=== PATIENT | female | born 1955 | race Asian ===

== ENCOUNTER 2018-04-19 20:40 | Emergency (ER) | payer OTHER ==
[2018-04-19 21:05] VITALS: BP 163/82; PULSE 94; TEMP 98; BMI 22.2
[2018-04-19] MEDS ORDERED: DIPHTH,PERTUSS(ACELL),TET 0.5 ML DISP.SYRIN IM ONE (21:05)
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
[2018-04-20] MEDS ORDERED: AMOX TR/POT CLAV 875MG/125MG TABLETS (FP) PO ONE (01:19)
[2018-04-20] MEDS ORDERED: AMOX TR/POT CLAV 875MG/125MG TABLETS (FP) ONE (01:20)
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
== END 2018-04-20 01:23 | disposition home or self-care (01) ==
LOC: JER 20:40
PROC: 3E0234Z Introduction of Serum, Toxoid and Vaccine into Muscle, Percutaneous Approach (ICD-10-PCS; principal; 2018-04-19)
DX: S50.372A Other superficial bite of left elbow, initial encounter (principal); W50.3XXA Accidental bite by another person, initial encounter; Y93.F9 Activity, other caregiving; Y92.128 Other place in nursing home as the place of occurrence of the external cause; Y99.0 Civilian activity done for income or pay; E11.9 Type 2 diabetes mellitus without complications; Z79.84 Long term (current) use of oral hypoglycemic drugs
CPT/HCPCS: 90715; 99282-25

== ENCOUNTER 2021-04-09 04:56 | Emergency (ER) | payer OTHER ==
[2021-04-09 06:02] VITALS: BMI 25.3
[2021-04-09 06:06] LABS: PH,URINE 6.5 (5.0-8.0); URINE APPEARANCE CLEAR; URINE BILIRUBIN NEGATIVE (NEGATIVE); URINE COLOR YELLOW; URINE GLUCOSE (UA) 3+ (NEGATIVE); URINE KETONE 1+ (NEGATIVE); URINE LEUK ESTERASE NEGATIVE (NEGATIVE); URINE NITRITE NEGATIVE (NEGATIVE); URINE PROTEIN NEGATIVE (NEGATIVE); URINE UROBILINOGEN 0.2 mg/dL (0.2-1.0)
[2021-04-09 06:50] VITALS: BP 131/75; PULSE 97; TEMP 98.6
== END 2021-04-09 06:52 | disposition home or self-care (01) ==
LOC: JER 04:56
DX: R33.9 Retention of urine, unspecified (principal)
CPT/HCPCS: 81003; 87086; 99283-25

== ENCOUNTER 2021-05-25 04:24 | Day surgery (SDC) | payer OTHER ==
[2021-05-21 12:47] VITALS: BMI 27.6
[2021-05-25] MEDS ORDERED: PROPOFOL 20 ML ONE ×2 (12:51)
[2021-05-25] MEDS ORDERED: MIDAZOLAM HCL 2 MG/2 ML SINGLE DOSE VIAL ONE (12:51)
[2021-05-25] MEDS ORDERED: SUCCINYLCHOLINE CHLORIDE 200 MG/10 ML SYRINGE ONE (12:53)
[2021-05-25] MEDS ORDERED: ACETAMINOPHEN 1000 MG/100 ML VIAL IVPB ONE (13:40)
[2021-05-25] MEDS ORDERED: DEXTROSE 5%-0.45% SALINE 1,000 ML IV SCH (13:45)
[2021-05-25] MEDS ORDERED: ceFAZolin SODIUM 1 GM VIAL IVPB ONE (13:50)
[2021-05-25] MEDS ORDERED: ACETAMINOPHEN INJECTION 100 ML IVPB ONE (15:34)
[2021-05-25] MEDS ORDERED: ONDANSETRON 4 MG/2 ML VIAL IVPUSH PRN (16:04)
[2021-05-25] MEDS ORDERED: oxyCODONE HCL 5 MG TABLET PO PRN (16:04)
[2021-05-25] MEDS ORDERED: LACTATED RINGERS SOLUTION 1,000 ML IV SCH (16:15)
[2021-05-25 17:58] VITALS: BP 133/65; PULSE 89; TEMP 98
== END 2021-05-25 18:00 | disposition home or self-care (01) ==
LOC: JASU-SURG 04:24
PROVIDERS: ATTEND Urology
PROC: 0TSD4ZZ Reposition Urethra, Percutaneous Endoscopic Approach (ICD-10-PCS; 2021-05-25)
PROC: 0JQC0ZZ Repair Pelvic Region Subcutaneous Tissue and Fascia, Open Approach (ICD-10-PCS; principal; 2021-05-25 13:30)
PROC: 0TSD4ZZ Reposition Urethra, Percutaneous Endoscopic Approach (ICD-10-PCS; 2021-05-25 13:30)
DX: N81.11 Cystocele, midline (principal); R33.8 Other retention of urine; N36.41 Hypermobility of urethra; E11.9 Type 2 diabetes mellitus without complications; Z79.84 Long term (current) use of oral hypoglycemic drugs
CPT/HCPCS: 57240; 57288; C1771; 82962; 88305-TC; 94760; J0131

== ENCOUNTER 2021-11-07 18:30 | Emergency (ER) | payer OTHER ==
[2021-11-07 18:39] VITALS: BP 168/84; PULSE 84; TEMP 98.1; BMI 24.8
[2021-11-07] MEDS ORDERED: DIPHTH,PERTUSS(ACELL),TET 0.5 ML DISP.SYRIN IM ONE ×2 (19:32→20:07)
== END 2021-11-07 20:35 | disposition home or self-care (01) ==
LOC: JERFT 18:30
PROC: 0HQ0XZZ Repair Scalp Skin, External Approach (ICD-10-PCS; principal; 2021-11-07)
PROC: 3E0234Z Introduction of Serum, Toxoid and Vaccine into Muscle, Percutaneous Approach (ICD-10-PCS; 2021-11-07)
DX: S01.01XA Laceration without foreign body of scalp, initial encounter (principal); Y00.XXXA Assault by blunt object, initial encounter
CPT/HCPCS: 90715; 99283-25

== ENCOUNTER 2024-07-13 17:57 | Observation (INO) | payer OTHER ==
[2024-07-13 18:13] VITALS: BMI 20.6
[2024-07-13 19:36] LABS: BASO % 0.3 % (0-2.0)
[2024-07-13] MEDS: morphine CARPU-JECT 4 MG/1 ML DISP.SYRIN IVPUSH ONE (19:38)
[2024-07-13] MEDS ORDERED: KETOROLAC TROMETHAMINE 15 MG/ML VIAL ONE (19:40)
[2024-07-13] MEDS: KETOROLAC TROMETHAMINE 15 MG/ML VIAL IVPUSH ONE (19:43)
[2024-07-13 19:44] LABS: INR 0.98 (0.83-1.09); PROTHROMBIN TIME (PATIENT) 11.3 SEC (9.7-13.0)
[2024-07-13 19:45] LABS: EOS % 0.6 % (0-4.5); HEMATOCRIT 40.2 % (32.4-45.2); HEMOGLOBIN 13.7 GM/dL (10.7-15.3); LYMPH % 10.6 % (8-40); MCH 30.1 pg (25.7-33.7); MCHC 34.1 g/dl (32.0-36.0); MEAN CELL VOLUME 88.1 fl (80-96); MEAN PLT VOLUME 7.7 fl (7.5-11.1); MONO % 4.9 % (3.8-10.2); NEUT % 83.6 % (42.8-82.8); PLATELET COUNT 240 10^3/uL (134-434); RBC 4.56 M/mm3 (3.60-5.2); RDW 13.6 % (11.6-15.6); WHITE BLOOD COUNT 10.5 K/mm3 (4.0-10.0)
[2024-07-13 19:46] LABS: ACTIVATED PTT 34.2 SECONDS (25.2-36.5)
[2024-07-13 20:04] LABS: POTASSIUM 4.1 mmol/L (3.5-5.1)
[2024-07-13 20:06] LABS: BLOOD UREA NITROGEN 12.1 mg/dL (7-18); CALCIUM 9.7 mg/dL (8.5-10.1)
[2024-07-13 20:07] LABS: ALBUMIN 4.4 g/dl (3.4-5.0)
[2024-07-13 20:10] LABS: CREATININE 0.7 mg/dL (0.55-1.3)
[2024-07-13 20:11] LABS: BILIRUBIN,TOTAL 0.4 mg/dL (0.2-1); TOT PROT 7.9 g/dl (6.4-8.2)
[2024-07-13] MEDS ORDERED: traMADol HCL 50 MG TABLET ONE (23:12)
[2024-07-13] MEDS: traMADol HCL 50 MG TABLET PO ONE (23:16)
[2024-07-14] MEDS ORDERED: MORPHINE SULFATE 2 MG/ML SYRINGE IVPUSH PRN (01:01)
[2024-07-14] MEDS: ACETAMINOPHEN 1000 MG/100 ML BAG IVPB PRN (06:51)
[2024-07-14] MEDS: INSULIN ASPART SLIDING SCALE (NOVOLOG) 1 VIAL SQ SCH (07:18)
[2024-07-14 09:34] LABS: BASO % 0.3 % (0-2.0); EOS % 0.5 % (0-4.5); HEMATOCRIT 37.2 % (32.4-45.2); HEMOGLOBIN 12.7 GM/dL (10.7-15.3); LYMPH % 20.1 % (8-40); MCH 30.3 pg (25.7-33.7); MCHC 34.2 g/dl (32.0-36.0); MEAN CELL VOLUME 88.5 fl (80-96); MONO % 7.2 % (3.8-10.2); NEUT % 71.9 % (42.8-82.8); PLATELET COUNT 228 10^3/uL (134-434); RBC 4.21 M/mm3 (3.60-5.2); RDW 13.5 % (11.6-15.6); WHITE BLOOD COUNT 5.3 K/mm3 (4.0-10.0)
[2024-07-14 09:42] LABS: INR 1.11 (0.83-1.09); PROTHROMBIN TIME (PATIENT) 12.5 SEC (9.7-13.0)
[2024-07-14 09:59] LABS: ALBUMIN 3.8 g/dl (3.4-5.0); BLOOD UREA NITROGEN 14.8 mg/dL (7-18); CALCIUM 9.1 mg/dL (8.5-10.1); MAGNESIUM 2.2 mg/dL (1.8-2.4)
[2024-07-14] MEDS ORDERED: LOSARTAN POTASSIUM 25 MG TABLET PO SCH (10:00)
[2024-07-14 10:02] LABS: CREATININE 0.6 mg/dL (0.55-1.3); PHOSPHOROUS 3.5 mg/dL (2.5-4.9)
[2024-07-14 10:03] LABS: BILIRUBIN,TOTAL 0.7 mg/dL (0.2-1)
[2024-07-14 10:04] LABS: TOT PROT 6.9 g/dl (6.4-8.2)
[2024-07-14] MEDS: ENOXAPARIN NA (PORCINE) 40 MG/0.4 ML DISP.SYRIN SQ SCH (10:06)
[2024-07-14] MEDS: ATORVASTATIN CA 10 MG TABLET (FP) PO SCH (21:25)
[2024-07-14] MEDS: ACETAMINOPHEN 325 MG TABLET (FP) PO SCH (21:25)
[2024-07-15] MEDS: traMADol HCL 50 MG TABLET PO PRN (04:33)
[2024-07-15] MEDS: glipiZIDE 5 MG TABLET (FP) PO SCH (13:01)
[2024-07-15] MEDS: metFORMIN HCL 500 MG TABLET (FP) PO SCH (13:01)
[2024-07-15] MEDS: EMPAGLIFLOZIN (JARDIANCE) 25 MG TABLET PO SCH (13:52)
[2024-07-18] MEDS ORDERED: INSULIN ASPART SLIDING SCALE (NOVOLOG) 1 VIAL SQ ONE ×2 (06:48→06:57)
[2024-07-19] MEDS ORDERED: INSULIN (LEVEMIR) 100 UNITS/ML UNITS SQ ONE (07:23)
[2024-07-19] MEDS ORDERED: INSULIN ASPART SLIDING SCALE (NOVOLOG) 1 VIAL SQ ONE (07:23)
[2024-07-21 08:31] LABS: BASO % 0.6 % (0-2.0); EOS % 2.7 % (0-4.5); HEMATOCRIT 37.5 % (32.4-45.2); LYMPH % 28.4 % (8-40); MCH 30.3 pg (25.7-33.7); MCHC 34.6 g/dl (32.0-36.0); MEAN CELL VOLUME 87.5 fl (80-96); MEAN PLT VOLUME 7.9 fl (7.5-11.1); MONO % 8.3 % (3.8-10.2); PLATELET COUNT 293 10^3/uL (134-434); RBC 4.28 M/mm3 (3.60-5.2); RDW 13.4 % (11.6-15.6); WHITE BLOOD COUNT 5.2 K/mm3 (4.0-10.0)
[2024-07-21 08:36] LABS: POTASSIUM 4.2 mmol/L (3.5-5.1)
[2024-07-21 08:40] LABS: BLOOD UREA NITROGEN 20.3 mg/dL (7-18); CALCIUM 9.4 mg/dL (8.5-10.1)
[2024-07-21 08:44] LABS: CREATININE 0.6 mg/dL (0.55-1.3)
[2024-07-23 20:39] VITALS: RESP 20
[2024-07-24] MEDS: EMPAGLIFLOZIN (JARDIANCE) 25 MG TABLET PO SCH (06:23)
[2024-07-24 09:22] VITALS: BP 141/65; PULSE 91; TEMP 98.3
== END 2024-07-24 09:30 ==
LOC: JER 17:57 → JERBED 07-14 00:06 → J6S 07-14 02:16
PROVIDERS: ADMIT Internal Medicine; ATTEND Internal Medicine
PROC: 3E033NZ Introduction of Analgesics, Hypnotics, Sedatives into Peripheral Vein, Percutaneous Approach (ICD-10-PCS; principal; 2024-07-14)
PROC: 3E023GC Introduction of Other Therapeutic Substance into Muscle, Percutaneous Approach (ICD-10-PCS; 2024-07-14)
PROC: 3E013VG Introduction of Insulin into Subcutaneous Tissue, Percutaneous Approach (ICD-10-PCS; 2024-07-14)
PROC: 3E0333Z Introduction of Anti-inflammatory into Peripheral Vein, Percutaneous Approach (ICD-10-PCS; 2024-07-14)
DX: S32.591A Other specified fracture of right pubis, initial encounter for closed fracture (principal); W18.39XA Other fall on same level, initial encounter; Y93.89 Activity, other specified; Y92.89 Other specified places as the place of occurrence of the external cause; Y99.0 Civilian activity done for income or pay; E11.9 Type 2 diabetes mellitus without complications; E78.5 Hyperlipidemia, unspecified
CPT/HCPCS: 36415; 70450-TC; 71045-TC-FY; 72125-TC; 72170-TC-FY; 73502-TC-RT-FY; 80048; 80053; 82962; 83036; 83735; 84100; 84443; 85025; 85610; 85730; 86850; 86900; 86901; 93005; 93010; 97116-GP; 97161-GP; 99285-25; G0378; J0131